=== PATIENT | male | born 1950 | race African-American/Black ===

== ENCOUNTER 2017-05-13 16:22 | Inpatient (IN) | payer OTHER ==
[2017-05-13 16:55] LABS: BASO % 0.4 % (0-2.0); EOS % 0.6 % (0-4.5); HEMATOCRIT 41.3 % (35.4-49); HEMOGLOBIN 13.6 GM/dL (11.7-16.9); LYMPH % 33.9 % (8-40); MCH 29.4 pg (25.7-33.7); MCHC 32.9 g/dl (32.0-35.9); MEAN CELL VOLUME 89.3 fl (80-96); MEAN PLT VOLUME 7.6 fl (7.5-11.1); MONO % 8.9 % (3.8-10.2); NEUT % 56.2 % (42.8-82.8); PLATELET COUNT 209 K/MM3 (134-434); RBC 4.62 M/mm3 (4.00-5.60); RDW 13.9 % (11.9-15.9); WHITE BLOOD COUNT 6.7 K/mm3 (4.0-10.0)
[2017-05-13 16:57] LABS: URINE APPEARANCE CLOUDY; URINE BILIRUBIN NEGATIVE (NEGATIVE); URINE BLOOD 3+ (NEGATIVE); URINE COLOR DKYELLOW; URINE GLUCOSE (UA) NEGATIVE (NEGATIVE); URINE KETONE NEGATIVE (NEGATIVE); URINE LEUK ESTERASE NEGATIVE (NEGATIVE); URINE NITRITE NEGATIVE (NEGATIVE)
[2017-05-13 16:58] LABS: URINE PROTEIN 1+ (NEGATIVE)
[2017-05-13 17:08] LABS: URINE HYALINE CAST 4 /lpf; URINE MUCUS RARE
--- NOTE | 2017-05-13 17:14 | PDOC ---
History of Present Illness - General Chief Complaint: Pain, Acute Stated Complaint: FLANK/ABD PAIN Time Seen by Provider: 05/13/17 16:49 History Source: Patient Exam Limitations: No Limitations - History of Present Illness Travel History: No Initial Comments: 05/13/17 17:11 67-year-old male with a history of hyperlipidemia presents to the emergency department complaining of 6/10 sharp nonradiating intermittent left-sided flank pain since yesterday. Patient states he thought it was the Menendez's that he had last evening. Patient states the pain subsided last evening but recurred again 3 hours prior to his arrival to the emergency department this evening. There are no alleviating or exacerbating factors. Patient denies fever, chills, nausea/vomiting, injuries, chest pain, shortness of breath, back pains, abdominal discomfort, urinary symptoms: Frequency/urgency/hesitancy, hematuria. No history of renal colic. Timing/Duration: reports: intermittent Abdominal Pain Onset Location: reports: flank (left) Past History - Past Medical History Allergies/Adverse Reactions: Allergies Allergy/AdvReac Type Severity Reaction Status Date / Time No Known Allergies Allergy Verified 05/13/17 16:30 Home Medications: Ambulatory Orders Atorvastatin Ca [Lipitor] 20 mg PO HS 05/13/17 COPD: No Hypercholesterolemia: Yes - Surgical History Abdominal Surgery: Yes (hernia) - Suicide/Smoking/Psychosocial Hx Smoking History: Never smoked Information on smoking cessation initiated: No Hx Alcohol Use: No Drug/Substance Use Hx: No Substance Use Type: None Review of Systems - Review of Systems Able to Perform ROS?: Yes Comments:: 05/13/17 17:12 CONSTITUTIONAL: Absent: fever, chills, diaphoresis, generalized weakness, malaise, loss of appetite HEENT: Absent: rhinorrhea, nasal congestion, throat pain, throat swelling, difficulty swallowing, mouth swelling, ear pain, eye pain, visual Changes CARDIOVASCULAR: Absent: chest pain, loss of consciousness, palpitations, irregular heart rate, peripheral edema RESPIRATORY: Absent: cough, shortness of breath, dyspnea with exertion, orthopnea, wheezing, stridor, hemoptysis GASTROINTESTINAL: Absent: abdominal pain, abdominal distension, nausea, vomiting, diarrhea, constipation, melena, hematochezia GENITOURINARY: +left flank pain Absent: dysuria, frequency, urgency, hesitancy, hematuria, genital pain MUSCULOSKELETAL: Absent: myalgia, arthralgia, joint swelling SKIN: Absent: rash, itching, pallor HEMATOLOGIC/IMMUNOLOGIC: Absent: easy bleeding, easy bruising, lymphadenopathy, frequent infections ENDOCRINE: Absent: unexplained weight gain, unexplained weight loss, heat intolerance, cold intolerance NEUROLOGIC: Absent: headache, focal weakness or paresthesias, dizziness, unsteady gait, seizure, mental status changes, bladder or bowel incontinence Is the patient limited Bhutanese proficient: No *Physical Exam - Vital Signs Last Vital Signs Temp Pulse Resp BP Pulse Ox 97.5 F L 70 19 171/94 97 05/13/17 16:28 05/13/17 16:28 05/13/17 16:28 05/13/17 16:28 05/13/17 16:28 - Physical Exam Comments: 05/13/17 17:12 GENERAL: Well developed, well nourished. Awake and alert. No acute distress. HEENT: Normocephalic, atraumatic. PERRLA, EOMI. No conjunctival pallor. Sclera are non- icteric. Moist mucous membranes. Oropharynx is clear. NECK: Supple. Full ROM. No JVD. Carotid pulses 2+ and symmetric, without bruits. No thyromegaly. No lymphadenopathy. CARDIOVASCULAR: Regular rate and rhythm. No murmurs, rubs, or gallops. Distal pulses are 2+ and symmetric. PULMONARY: No evidence of respiratory distress. Lungs clear to auscultation bilaterally. No wheezing, rales or rhonchi. ABDOMINAL: Soft. Non-tender. Non-distended. No rebound or guarding. No organomegaly. Normoactive bowel sounds. MUSCULOSKELETAL +left flank pain on percussion Normal range of motion at all joints. No bony deformities or tenderness. EXTREMITIES: No cyanosis. No clubbing. No edema. No calf tenderness. SKIN: Warm and dry. Normal capillary refill. No rashes. No jaundice. NEUROLOGICAL: Alert, awake, appropriate. Cranial nerves 2-12 intact. No deficits to light touch and temperature in face, upper extremities and lower extremities. No motor deficits in the in face, upper extremities and lower extremities. Normoreflexic in the upper and lower extremities. Normal speech. Toes are down- going bilaterally. Gait is normal without ataxia. PSYCHIATRIC: Cooperative. Good eye contact. Appropriate mood and affect. ED Treatment Course - LABORATORY CBC & Chemistry Diagram: 05/13/17 16:29 05/13/17 16:29 - ADDITIONAL ORDERS Additional order review: Laboratory Results 05/13/17 16:29 Urine Color Dkyellow Urine Appearance Cloudy Urine pH 5.0 Ur Specific [place] 1.020 Urine Protein 1+ H Urine Glucose (UA) Negative Urine Ketones Negative Urine Blood 3+ H Urine Nitrite Negative Urine Bilirubin Negative Urine Urobilinogen 2.0 05/13/17 16:29 RBC 4.62 MCV 89.3 MCHC 32.9 RDW 13.9 MPV 7.6 Neutrophils % 56.2 Lymphocytes % 33.9 Monocytes % 8.9 Eosinophils % 0.6 Basophils % 0.4 - RADIOLOGY Radiograph Interpretation: 05/13/17 17:14 CT renal colic Progress Note - Progress Note Progress Note: 2044hrs: Spoke to Imaging pediatric oncologist Dr. Bethea/ 1cm obstructing calculus prox ureter with mild hydronephrosis 2hrs: 2nd call to Dr. De Oliveira/urology 2130hrs: Called hospitalist 6 hrs: Called hospitalist 2223hrs; Called hospitalist 2315hrs: Spoke to hospitalist /Dr. Howell *DC/Admit/Observation/Transfer Diagnosis at time of Disposition: Renal colic on left side Hydronephrosis Qualifiers: Hydronephrosis type: with renal and ureteral calculous obstruction Qualified Code(s): N13.2 - Hydronephrosis with renal and ureteral calculous obstruction - Discharge Dispostion Admit: Yes - Referrals Referrals: Lance Boss [Primary Care Provider] - - Patient Instructions - Post Discharge Activity
[2017-05-13 17:26] LABS: ALBUMIN 4.3 g/dl (3.4-5.0); ANION GAP 9 (8-16); BILIRUBIN,TOTAL 0.7 mg/dL (0.2-1.0); BLOOD UREA NITROGEN 11 mg/dL (7-18); CALCIUM 9.2 mg/dL (8.5-10.1); CHLORIDE 106 mmol/L (98-107); CO2 25 mmol/L (21-32); CREATININE 1.4 mg/dL (0.7-1.3); GLUCOSE,RANDOM 116 mg/dL (74-106); POTASSIUM 3.9 mmol/L (3.5-5.1); SGOT/AST 24 U/L (15-37); SGPT/ALT 50 U/L (12-78); SODIUM 140 mmol/L (136-145)
[2017-05-13 17:27] LABS: ALK PHOS 76 U/L (45-117)
[2017-05-13] MEDS ORDERED: KETOROLAC TROMETHAMINE 60 MG/2 ML VIAL IM ONE (17:37)
[2017-05-13] MEDS ORDERED: KETOROLAC TROMETHAMINE 60 MG/2 ML VIAL ONE (17:54)
[2017-05-13] MEDS ORDERED: SODIUM CHLORIDE 1,000 ML IV STA (20:48)
[2017-05-13] MEDS ORDERED: TAMSULOSIN HCL 0.4 MG CAP.ER.24H (FP) PO ONE (21:16)
[2017-05-13] MEDS ORDERED: TAMSULOSIN HCL 0.4 MG CAP.ER.24H (FP) ONE (21:21)
[2017-05-14] MEDS ORDERED: KETOROLAC TROMETHAMINE 30 MG/1 ML VIAL IVPUSH PRN (00:35)
--- NOTE | 2017-05-14 00:58 | HP ---
CHIEF COMPLAINT: back pain PCP: Gera HISTORY OF PRESENT ILLNESS: The pt is a 67 year old male with a PMH of hyperlipidemia presents to the emergency department complaining of severe pain located on the left side of his back. It started yesterday, was 6 to 10/10, started suddenly when pt was driving. He states he thought it was the Menendez's that he had last evening but the pain subsided last evening. It recurred again around 3 PM today, prior to his arrival to the emergency department. There are no alleviating or exacerbating factors. It is constant, left flank, no radiation. Patient denies fever, chills, nausea/vomiting, renal colic in the past, injuries, chest pain, shortness of breath, trauma, requency, urgency, hematuria. 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 Family History: Mother; healthy, alive father: Colon Ca Allergies No Known Allergies Allergy (Verified 05/13/17 16:30) HOME MEDICATIONS: confirmed with the pt Home Medications Medication Instructions Recorded Atorvastatin Ca [Lipitor] 20 mg PO HS 05/13/17 REVIEW OF SYSTEMS CONSTITUTIONAL: Absent: fever, chills, diaphoresis, generalized weakness, malaise, loss of appetite, weight change HEENT: Absent: rhinorrhea, nasal congestion, throat pain, throat swelling, difficulty swallowing, mouth swelling, ear pain, eye pain, visual changes CARDIOVASCULAR: Absent: chest pain, syncope, palpitations, irregular heart rate, lightheadedness , peripheral edema RESPIRATORY: Absent: cough, shortness of breath, orthopnea, wheezing, stridor, hemoptysis GASTROINTESTINAL: Absent: abdominal pain, abdominal distension, nausea, vomiting, diarrhea, constipation, melena, hematochezia GENITOURINARY: Absent: dysuria, frequency, urgency, hesitancy, hematuria, flank pain, genital pain MUSCULOSKELETAL: back pain Absent: myalgia, arthralgia, joint swelling, neck pain ENDOCRINE: Absent: unexplained weight gain, unexplained weight los NEUROLOGIC: Absent: headache, focal weakness or paresthesias, dizziness, unsteady gait PSYCHIATRIC: Absent: anxiety, depression PHYSICAL EXAMINATION Vital Signs - 24 hr 05/13/17 05/13/17 05/14/17 16:28 21:27 00:23 Temperature 97.5 F L 98.0 F 98.2 F Pulse Rate 70 Pulse Rate [ 68 74 Apical] Respiratory 19 20 18 Rate Blood Pressure 171/94 Blood Pressure 152/86 136/89 [Right Arm] O2 Sat by Pulse 97 98 98 Oximetry (%) GENERAL: Awake, alert, and fully oriented, in moderate distress. HEAD: Normal with no signs of trauma. EYES: Pupils equal, round and reactive to light, extraocular movements intact, sclera anicteric, conjunctiva clear. No lid lag. EARS, NOSE, THROAT: Ears normal, nares patent, oropharynx clear without exudates. Moist mucous membranes. NECK: Normal range of motion, supple without lymphadenopathy, JVD, or masses. LUNGS: Breath sounds equal, clear to auscultation bilaterally. No wheezes, and no crackles. No accessory muscle use. HEART: Regular rate and rhythm, normal S1 and S2 without murmur, rub or gallop. ABDOMEN: Obese, soft, nontender, not distended, normoactive bowel sounds, no guarding, no rebound, no masses. MUSCULOSKELETAL: Normal range of motion at all joints. CVA tenderness on left side present. UPPER EXTREMITIES: 2+ pulses, warm, No cyanosis. No clubbing. No peripheral edema. LOWER EXTREMITIES: 2+ pulses, warm, No calf tenderness. No peripheral edema. NEUROLOGICAL: Normal speech, no facial asymmetry, motor 5/5. Normal gait. PSYCHIATRIC: Cooperative. Good eye contact. Appropriate mood and affect. SKIN: Warm, dry, normal turgor, no rashes or lesions noted. Laboratory Results - last 24 hr 05/13/17 05/13/17 05/13/17 16:29 16:29 16:29 WBC 6.7 RBC 4.62 Hgb 13.6 Hct 41.3 MCV 89.3 MCH 29.4 MCHC 32.9 RDW 13.9 Plt Count 209 MPV 7.6 Neutrophils % 56.2 Lymphocytes % 33.9 Monocytes % 8.9 Eosinophils % 0.6 Basophils % 0.4 Sodium 140 Potassium 3.9 Chloride 106 Carbon Dioxide 25 Anion Gap 9 BUN 11 Creatinine 1.4 H Creat Clearance w eGFR 50.25 Random Glucose 116 H Calcium 9.2 Total Bilirubin 0.7 AST 24 ALT 50 Alkaline Phosphatase 76 Total Protein 8.0 Albumin 4.3 Urine Color Dkyellow Urine Appearance Cloudy Urine pH 5.0 Ur Specific [place] 1.020 Urine Protein 1+ H Urine Glucose (UA) Negative Urine Ketones Negative Urine Blood 3+ H Urine Nitrite Negative Urine Bilirubin Negative Urine Urobilinogen 2.0 Ur Leukocyte Esterase Negative Urine WBC (Auto) 1 Urine RBC (Auto) 937 Hyaline Casts 4 Urine Mucus Rare ASSESSMENT/PLAN: This is a patient with a PMH of hyperlipidemia who presented to the hospital complaining of severe flank pain. He was admitted for renal colic. Renal colic due to nephrolithiasis preliminary CT report revealed 10 mm stone, will f/u official report Urology was consulted and will evaluate the pt in AM continue NS hydration at 150 cc/hr continue Ketorolac for pain management Hyperlipidemia: continue Atorvastatin 20 mg qd elevated creatinine; not known h/o of CKD, previous Cr will continue hydration DVT: SCDs and Hepatin 5000 u BID F/E/N: NS/no changes/NPO Disposition: Admit to inp med surg. Problem List - Problem (1) Renal colic on left side Code(s): N23 - UNSPECIFIED RENAL COLIC Visit type - Emergency Visit Emergency Visit: Yes ED Registration Date: 05/13/17 Care time: The patient presented to the Emergency Department on the above date and was hospitalized for further evaluation of their emergent condition. - New Patient This patient is new to me today: Yes Date on this admission: 05/14/17 - Critical Care Critical Care patient: No
[2017-05-14] MEDS: SODIUM CHLORIDE 1,000 ML IV SCH ×3 (01:11→12:28)
--- NOTE | 2017-05-14 01:15 | PN ---
Teaching Attending Note Name of Resident: Tina Guerrero ATTENDING PHYSICIAN STATEMENT I saw and evaluated the patient. I reviewed the resident's note and discussed the case with the resident. I agree with the resident's findings and plan as documented. SUBJECTIVE: OBJECTIVE: ASSESSMENT AND PLAN: patient is being admitted for nephrolithaisis IVF hydration pain management with keterolac consult urology tamsulosin 0.4mg daily
[2017-05-14 01:28] VITALS: BMI 38.3
[2017-05-14] MEDS ORDERED: KETOROLAC TROMETHAMINE 30 MG/1 ML VIAL IVPUSH ONE (05:08)
[2017-05-14] MEDS ORDERED: TAMSULOSIN HCL 0.4 MG CAP.ER.24H (FP) PO SCH (08:30)
[2017-05-14] MEDS ORDERED: HEPARIN NA (PORCINE) 5,000 UNITS/ML 1ML VIAL SQ SCH (10:00)
[2017-05-14 10:40] LABS: HEMATOCRIT 37.8 % (35.4-49); HEMOGLOBIN 12.3 GM/dL (11.7-16.9); MCH 29.3 pg (25.7-33.7); MCHC 32.6 g/dl (32.0-35.9); MEAN CELL VOLUME 89.7 fl (80-96); MEAN PLT VOLUME 7.6 fl (7.5-11.1); PLATELET COUNT 197 K/MM3 (134-434); RBC 4.22 M/mm3 (4.00-5.60); RDW 13.7 % (11.9-15.9); WHITE BLOOD COUNT 7.9 K/mm3 (4.0-10.0)
[2017-05-14 11:02] LABS: ALBUMIN 3.6 g/dl (3.4-5.0); ALK PHOS 66 U/L (45-117); ANION GAP 8 (8-16); BILIRUBIN,TOTAL 0.9 mg/dL (0.2-1.0); BLOOD UREA NITROGEN 14 mg/dL (7-18); CALCIUM 8.3 mg/dL (8.5-10.1); CHLORIDE 110 mmol/L (98-107); CO2 24 mmol/L (21-32); CREATININE 1.6 mg/dL (0.7-1.3); GLUCOSE,RANDOM 116 mg/dL (74-106); POTASSIUM 4.2 mmol/L (3.5-5.1); SGOT/AST 16 U/L (15-37); SGPT/ALT 37 U/L (12-78); SODIUM 142 mmol/L (136-145); TOT PROT 6.8 g/dl (6.4-8.2)
--- NOTE | 2017-05-14 11:21 | PN ---
Teaching Attending Note Name of Resident: . ATTENDING PHYSICIAN STATEMENT SUBJECTIVE: Patient seen and examined. reports left flank pain resolved an hour ago, no urinary symptoms. Denies any fevers, chills or other symptoms. Overall feels well currently. OBJECTIVE: Vital Signs Period Temp Pulse Resp BP Sys/Flaherty Pulse Ox Last 24 Hr 97.4 F-98.3 F 68-80 18-20 129-171/86-96 97-98 Intake & Output 05/11/17 05/12/17 05/13/17 05/14/17 23:59 23:59 23:59 23:59 Intake Total 1000 Output Total 400 Balance 600 Weight 220 lb 252 lb 6 oz general: ambulating in room in no acute distress ABdomen: soft, obese, NT, no Left CVA tenderness currently, no voluntary or involuntary guarding or rigidity Extremities: no edema Chest: CTAB, no rales or wheezing Home Medication List Medication Instructions Recorded Confirmed Type Atorvastatin Ca [Lipitor] 20 mg PO HS 05/13/17 05/13/17 History Active Medications Generic Name Dose Route Start Last Admin Trade Name Freq PRN Reason Stop Dose Admin Atorvastatin Calcium 20 mg 05/14/17 22:00 Lipitor - PO HS GUSTAVO Heparin Sodium (Porcine) 5,000 unit 05/14/17 10:00 05/14/17 09:25 Heparin - SQ 5,000 unit BID GUSTAVO Administration Sodium Chloride 1,000 mls @ 150 mls/hr 05/14/17 00:30 05/14/17 06:52 Normal Saline - IV 150 mls/hr ASDIR GUSTAVO Administration Ketorolac Tromethamine 20 mg 05/14/17 00:35 05/14/17 01:06 Toradol Injection - IVPUSH 05/19/17 00:34 20 mg Q6H PRN Administration PAIN Tamsulosin HCl 0.8 mg 05/14/17 08:30 05/14/17 09:01 Flomax - PO 0.8 mg DAILY@0830 GUSTAVO Administration Laboratory Results - last 24 hr 05/13/17 05/13/17 05/13/17 16:29 16:29 16:29 WBC 6.7 RBC 4.62 Hgb 13.6 Hct 41.3 MCV 89.3 MCH 29.4 MCHC 32.9 RDW 13.9 Plt Count 209 MPV 7.6 Neutrophils % 56.2 Lymphocytes % 33.9 Monocytes % 8.9 Eosinophils % 0.6 Basophils % 0.4 Sodium 140 Potassium 3.9 Chloride 106 Carbon Dioxide 25 Anion Gap 9 BUN 11 Creatinine 1.4 H Creat Clearance w eGFR 50.25 Random Glucose 116 H Calcium 9.2 Total Bilirubin 0.7 AST 24 ALT 50 Alkaline Phosphatase 76 Total Protein 8.0 Albumin 4.3 Urine Color Dkyellow Urine Appearance Cloudy Urine pH 5.0 Ur Specific [place] 1.020 Urine Protein 1+ H Urine Glucose (UA) Negative Urine Ketones Negative Urine Blood 3+ H Urine Nitrite Negative Urine Bilirubin Negative Urine Urobilinogen 2.0 Ur Leukocyte Esterase Negative Urine WBC (Auto) 1 Urine RBC (Auto) 937 Hyaline Casts 4 Urine Mucus Rare 05/14/17 05/14/17 09:35 09:35 WBC 7.9 RBC 4.22 Hgb 12.3 Hct 37.8 MCV 89.7 MCH 29.3 MCHC 32.6 RDW 13.7 Plt Count 197 MPV 7.6 Neutrophils % Lymphocytes % Monocytes % Eosinophils % Basophils % Sodium 142 Potassium 4.2 Chloride 110 H Carbon Dioxide 24 Anion Gap 8 BUN 14 D Creatinine 1.6 H Creat Clearance w eGFR 43.07 Random Glucose 116 H Calcium 8.3 L Total Bilirubin 0.9 D AST 16 D ALT 37 D Alkaline Phosphatase 66 Total Protein 6.8 Albumin 3.6 Urine Color Urine Appearance Urine pH Ur Specific [place] Urine Protein Urine Glucose (UA) Urine Ketones Urine Blood Urine Nitrite Urine Bilirubin Urine Urobilinogen Ur Leukocyte Esterase Urine WBC (Auto) Urine RBC (Auto) Hyaline Casts Urine Mucus CT A/P - official read pending, prelim 1 cm stone with mild hydronephrosis ASSESSMENT AND PLAN: 67 yom with dysloipidemia, obesity, admitted with Left obstructive uropathy with nephrolithiasis and hydronephrosis -Left nephrolithiasis with hydronephrosis -HLD -Obesity Plan: Urology called, Dr. Milligan covering, awaiting call back. NPO for now. Symptoms resolved currently. Toradol prn for pain. Aggressive hydration, strain all urine(though unlikely given size of the stone) Renal function stable, no evidence of infection. Follow up official CT read Continue statin. DVTPPX dispo pending urology input and likely intervention. Plan discussed with patient in detail, all questions answered.
[2017-05-14] MEDS ORDERED: PROMETHAZINE HCL 25 MG/1 ML VIAL IVPB PRN ×2 (13:36→16:32)
[2017-05-14] MEDS ORDERED: ONDANSETRON 4 MG/2 ML VIAL IVPUSH PRN ×2 (13:36→16:32)
[2017-05-14] MEDS ORDERED: LACTATED RINGERS SOLUTION 1,000 ML IV SCH ×2 (13:45→16:32)
[2017-05-14] MEDS ORDERED: PROPOFOL 20 ML ONE ×2 (14:38→14:39)
[2017-05-14] MEDS ORDERED: MIDAZOLAM HCL 2 MG/2 ML SINGLE DOSE VIAL ONE (14:39)
[2017-05-14] MEDS ORDERED: LIDOCAINE HCL/PF 2% SDV 5ML VIAL ONE (14:40)
[2017-05-14] MEDS ORDERED: LEVOFLOXACIN 500 MG IVPB 500 MG/100 ML BAG IVPB ONE (14:58)
[2017-05-14] MEDS ORDERED: LEVOFLOXACIN 500 MG PREMIX BAG IVPB ONE (14:59)
[2017-05-14] MEDS ORDERED: DEXAMETHASONE SOD PHOSPHATE 4 MG/1 ML VIAL ONE (15:05)
[2017-05-14] MEDS ORDERED: KETOROLAC TROMETHAMINE 30 MG/1 ML VIAL ONE (15:09)
[2017-05-14] MEDS ORDERED: SODIUM CHLORIDE 1,000 ML IV SCH (16:32)
--- NOTE | 2017-05-14 16:56 | EKG ---
Test Reason : Blood Pressure : / mmHG Vent. Rate : 071 BPM Atrial Rate : 071 BPM P-R Int : 196 ms QRS Dur : 084 ms QT Int : 400 ms P-R-T Axes : 051 -05 009 degrees QTc Int : 434 ms NORMAL SINUS RHYTHM NORMAL ECG NO PREVIOUS ECGS AVAILABLE Confirmed by TESSIE UMANZOR MD ([id number]) on 05/14/2017 4:56:09 PM Referred By: Rosie MORENO Confirmed By:TESSIE UMANZOR MD
[2017-05-14] MEDS: DEXTROSE 5%-0.45% SALINE 1,000 ML IV SCH (17:00)
--- NOTE | 2017-05-14 20:39 | CON.GU ---
Consult Consult Specialty:: Referred by:: MEDICINE Reason for Consultation:: Left ureteral. calculus - History of Present Illness Chief Complaint: left renal colic History of Present Illness: 67-year-old male with a left ureteral calculus. He has had several days of left- sided flank pain. No fevers. No previous history of stones. CAT scan done in emergency room revealed a 1 cm stone in the left ureter. He continues to have intermittent pain. - History Source History Provided By: Patient Limitations to Obtaining History: No Limitations - Past Medical History Renal/: Yes: BPH - Alcohol/Substance Use Hx Alcohol Use: No - Smoking History Smoking history: Never smoked Have you smoked in the past 12 months: No Home Medications - Allergies Allergies/Adverse Reactions: Allergies Allergy/AdvReac Type Severity Reaction Status Date / Time No Known Allergies Allergy Verified 05/13/17 16:30 - Home Medications Home Medications: Ambulatory Orders Atorvastatin Ca [Lipitor] 20 mg PO HS 05/13/17 Review of Systems - Review of Systems Genitourinary: reports: Flank Pain Physical Exam- Vital Signs: Vital Signs Temperature 98.4 F 05/14/17 17:33 Pulse Rate 68 05/14/17 17:33 Respiratory Rate 17 05/14/17 17:33 Blood Pressure 146/89 05/14/17 17:33 O2 Sat by Pulse Oximetry (%) 100 05/14/17 17:30 Kidneys: Yes: Flank Pain Left Labs: CBC, BMP 05/14/17 09:35 05/14/17 09:35 Problem List - Problems (1) Hydronephrosis Assessment/Plan: Patient was offered outpatient lithotripsy or immediate ureteral stent placement. He chooses to have the stent placed here. Will schedule for the OR. Code(s): N13.30 - UNSPECIFIED HYDRONEPHROSIS Qualifiers: Hydronephrosis type: with renal and ureteral calculous obstruction Qualified Code(s): N13.2 - Hydronephrosis with renal and ureteral calculous obstruction (2) Renal colic on left side Code(s): N23 - UNSPECIFIED RENAL COLIC
--- NOTE | 2017-05-14 20:44 | CON.GU ---
Consult Consult Specialty:: Referred by:: MEDICINE Reason for Consultation:: 67-year-old male with an obstructing left ureteral calculus - History of Present Illness Chief Complaint: left renalcolic History of Present Illness: 67-year-old male with several days of left-sided real colic. No previous history of kidney stones. No fevers. CAT scan done in the emergency room confirmed the presence of a 1 cm stone in the mid left ureter with proximal hydronephrosis. He continues to have intermittent pain. No fevers noted. - History Source History Provided By: Patient Limitations to Obtaining History: No Limitations - Past Medical History Renal/: Yes: BPH - Alcohol/Substance Use Hx Alcohol Use: No - Smoking History Smoking history: Never smoked Have you smoked in the past 12 months: No Home Medications - Allergies Allergies/Adverse Reactions: Allergies Allergy/AdvReac Type Severity Reaction Status Date / Time No Known Allergies Allergy Verified 05/13/17 16:30 - Home Medications Home Medications: Ambulatory Orders Atorvastatin Ca [Lipitor] 20 mg PO HS 05/13/17 Physical Exam- Vital Signs: Vital Signs Temperature 98.4 F 05/14/17 17:33 Pulse Rate 68 05/14/17 17:33 Respiratory Rate 17 05/14/17 17:33 Blood Pressure 146/89 05/14/17 17:33 O2 Sat by Pulse Oximetry (%) 100 05/14/17 17:30 Labs: CBC, BMP 05/14/17 09:35 05/14/17 09:35
[2017-05-14] MEDS ORDERED: ATORVASTATIN CA 20 MG TABLET (FP) PO SCH ×2 (22:00)
[2017-05-14] MEDS: HEPARIN NA (PORCINE) 5,000 UNITS/ML 1ML VIAL SQ SCH (22:06)
[2017-05-15] MEDS: DEXTROSE 5%-0.45% SALINE 1,000 ML IV SCH (06:00)
[2017-05-15 07:14] LABS: BASO % 0.3 % (0-2.0); HEMOGLOBIN 11.3 GM/dL (11.7-16.9); LYMPH % 14.6 % (8-40); MCH 29.1 pg (25.7-33.7); MCHC 32.3 g/dl (32.0-35.9); MEAN PLT VOLUME 8.1 fl (7.5-11.1); MONO % 8.3 % (3.8-10.2); NEUT % 76.8 % (42.8-82.8); PLATELET COUNT 188 K/MM3 (134-434); RBC 3.89 M/mm3 (4.00-5.60); RDW 13.6 % (11.9-15.9); WHITE BLOOD COUNT 8.5 K/mm3 (4.0-10.0)
[2017-05-15 07:33] LABS: ANION GAP 11 (8-16); BLOOD UREA NITROGEN 13 mg/dL (7-18); CALCIUM 8.5 mg/dL (8.5-10.1); CHLORIDE 108 mmol/L (98-107); CO2 23 mmol/L (21-32); CREATININE 1.2 mg/dL (0.7-1.3); GLUCOSE,RANDOM 130 mg/dL (74-106); POTASSIUM 4.4 mmol/L (3.5-5.1); SODIUM 142 mmol/L (136-145)
[2017-05-15] MEDS ORDERED: TAMSULOSIN HCL 0.4 MG CAP.ER.24H (FP) PO SCH (08:30)
[2017-05-15 08:48] VITALS: BP 142/85; PULSE 66; TEMP 98
[2017-05-15] MEDS: HEPARIN NA (PORCINE) 5,000 UNITS/ML 1ML VIAL SQ SCH (09:35)
--- NOTE | 2017-05-15 09:44 | DS ---
Physical Exam: SUBJECTIVE: Patient seen and examined. pain has resolved. denies CP, SOB< fever , chills, N/V/C/D OBJECTIVE: Vital Signs Period Temp Pulse Resp BP Sys/Flaherty Pulse Ox Last 24 Hr 97.4 F-98.7 F 65-86 10-18 122-146/76-89 98-100 PHYSICAL EXAM GENERAL: The patient is awake, alert, and fully oriented, in no acute distress. HEAD: Normal with no signs of trauma. EYES: PERRL, extraocular movements intact, sclera anicteric, conjunctiva clear. ENT: Ears normal, nares patent, oropharynx clear without exudates, moist mucous membranes. NECK: Trachea midline, full range of motion, supple. LUNGS: Breath sounds equal, clear to auscultation bilaterally, no wheezes, no crackles, no accessory muscle use. HEART: Regular rate and rhythm, S1, S2 without murmur, rub or gallop. ABDOMEN: Soft, nontender, nondistended, normoactive bowel sounds, no guarding, no rebound, no hepatosplenomegaly, no masses. no CVA tenderness EXTREMITIES: 2+ pulses, warm, well-perfused, no edema. NEUROLOGICAL: Cranial nerves II through XII grossly intact. Normal speech, gait not observed. PSYCH: Normal mood, normal affect. SKIN: Warm, dry, normal turgor, no rashes or lesions noted. LABS Laboratory Results - last 24 hr 05/14/17 05/14/17 05/15/17 09:35 09:35 06:25 WBC 7.9 8.5 RBC 4.22 3.89 L Hgb 12.3 11.3 L Hct 37.8 35.0 L MCV 89.7 90.0 MCH 29.3 29.1 MCHC 32.6 32.3 RDW 13.7 13.6 Plt Count 197 188 MPV 7.6 8.1 Neutrophils % 76.8 D Lymphocytes % 14.6 D Monocytes % 8.3 Eosinophils % 0.0 D Basophils % 0.3 Sodium 142 Potassium 4.2 Chloride 110 H Carbon Dioxide 24 Anion Gap 8 BUN 14 D Creatinine 1.6 H Creat Clearance w eGFR 43.07 Random Glucose 116 H Calcium 8.3 L Total Bilirubin 0.9 D AST 16 D ALT 37 D Alkaline Phosphatase 66 Total Protein 6.8 Albumin 3.6 05/15/17 06:25 WBC RBC Hgb Hct MCV MCH MCHC RDW Plt Count MPV Neutrophils % Lymphocytes % Monocytes % Eosinophils % Basophils % Sodium 142 Potassium 4.4 Chloride 108 H Carbon Dioxide 23 Anion Gap 11 BUN 13 Creatinine 1.2 D Creat Clearance w eGFR Random Glucose 130 H Calcium 8.5 Total Bilirubin AST ALT Alkaline Phosphatase Total Protein Albumin HOSPITAL COURSE: Date of Admission:05/13/17 Date of Discharge: 05/15/17 Admitting diagnosis: L obstructing nephrolithasis PRe hospital course The pt is a 67 year old male with a PMH of hyperlipidemia presents to the emergency department complaining of severe pain located on the left side of his back. It started yesterday, was 6 to 1010, started suddenly when pt was driving. He states he thought it was the Menendez's that he had last evening but the pain subsided last evening. It recurred again around 3 PM today, prior to his arrival to the emergency department. There are no alleviating or exacerbating factors. It is constant, left flank, no radiation. Patient denies fever, chills, nausea/vomiting, renal colic in the past, injuries, chest pain, shortness of breath, trauma, requency, urgency, hematuria. Subsequent hospital course Admitted to medicine. started on IVF, flomax and pain control. CT showing obstructing 1cm L stone with mild hydro. evaluated by urology. opted for ureteral stent placement. LAKIA resolved. hematuria resolved. pain resolved. d/c home Minutes to complete discharge: 40 Discharge Summary Reason For Visit: HYDRONEPHROSIS/RENAL COLIC ON LEFT SIDE Current Active Problems Hematuria (Acute) Hydronephrosis (Acute) Renal calculus or stone (Acute) Renal colic on left side (Acute) Condition: Improved - Instructions Diet, Activity, Other Instructions: You were admitted to the hospital due to a kidney stone You were placed on a medication to help pass the stone and for your prostate. A stent was placed into your left ureter. You can take motrin as needed for pain. Continued to drink plenty of water. avoid soda. Follow up with urologist in 1 -2 weeks Follow up with your primary care doctor this week, You should have your blood counts checked as they were low while you were hospitalized. Return the ER if your symptoms worsen, urinate tim blood or develop fever ( temp >101) Referrals: Lance Boss [Primary Care Provider] - Vickey Agrawal MD [Staff Physician] - Disposition: HOME - Home Medications Comprehensive Discharge Medication List: Ambulatory Orders Atorvastatin Ca [Lipitor] 20 mg PO HS 05/13/17 Tamsulosin HCl [Flomax -] 0.8 mg PO DAILY@08 #60 cap.er.24h 05/15/17 This patient is new to me today: Yes Date on this admission: 05/15/17 Emergency Visit: Yes ED Registration Date: 05/13/17 Care time: The patient presented to the Emergency Department on the above date and was hospitalized for further evaluation of their emergent condition. Critical Care patient: No - Discharge Referral Referred to [facility] Med [facility].C.: No
--- NOTE | 2017-05-26 09:31 | OP ---
DATE OF OPERATION: 05/14/2017 PREOPERATIVE DIAGNOSIS: Left ureteral calculus with hydronephrosis. POSTOPERATIVE DIAGNOSIS: Left ureteral calculus with hydronephrosis. PROCEDURE: Cystoscopy, left retrograde pyelogram, left ureteroscopy, left ureteral stent placement. ANESTHESIA: General. ANESTHESIOLOGIST: Ward Cardenas MD SURGEON: Vickey Agrawal MD FINDINGS: An obstructed left ureter. DRAINS: A 6 x 26 double-J ureteral stent. ESTIMATED BLOOD LOSS: Minimal. PREOPERATIVE INDICATIONS: The patient is a 67-year-old male who comes in with left-sided flank pain. CT scan reveals a 1-cm stone in the left ureter. He comes to the OR for stent placement. OPERATION: Patient brought to the OR, placed on the table in the supine position, given general anesthesia and IV antibiotics and placed in the modified lithotomy position. The groin was prepped and draped sterilely. Timeout was performed. Cystoscopy was performed. The urethra appeared to be unremarkable. Prostate was markedly enlarged and obstructive. The bladder itself had trabeculation throughout consistent with longstanding bladder outlet obstruction. No tumors or stones were seen. The left ureteral orifice was visualized. Attempts at passing a wire into the left ureter were unsuccessful. There appeared to be some obstruction in the intramural ureter and a wire could not be passed. A rigid ureteroscope was then placed into the ureter and the true lumen was seen. The wire was passed under guidance of the ureteroscope. The scope was then removed and a 6 x 26 double-J ureteral stent was placed over the wire. One loop in the kidney, 1 loop in the bladder. Retrograde pyelogram did confirm hydronephrosis. Bladder was emptied. The patient was woken up. Edouard [id number]
== END 2017-05-15 10:42 | disposition home or self-care (01) | DRG 660 ==
LOC: JER 16:22 → JERBED 23:13 → UNDOADMIN 23:17 → JERBED 23:17 → J5S 05-14 00:51
PROVIDERS: ADMIT Internal Medicine; ATTEND Internal Medicine
PROC: 0TH98YZ Insertion of Other Device into Ureter, Via Natural or Artificial Opening Endoscopic (ICD-10-PCS; 2017-05-14)
PROC: BT1FZZZ Fluoroscopy of Left Kidney, Ureter and Bladder (ICD-10-PCS; 2017-05-14)
PROC: 0T778DZ Dilation of Left Ureter with Intraluminal Device, Via Natural or Artificial Opening Endoscopic (ICD-10-PCS; principal; 2017-05-14 14:30)
DX: N13.2 Hydronephrosis with renal and ureteral calculous obstruction (principal); R31.9 Hematuria, unspecified; E78.5 Hyperlipidemia, unspecified; E66.9 Obesity, unspecified; Z68.38 Body mass index [BMI] 38.0-38.9, adult; N17.9 Acute kidney failure, unspecified
CPT/HCPCS: 36415; 71020-TC; 74176; 76000-TC; 80048; 80053; 81003; 81015; 85025; 85027; 93005; 93010; 94760; 99284-25; J1644

== ENCOUNTER 2017-06-23 06:07 | Day surgery (SDC) | payer OTHER ==
[2017-06-22 09:21] VITALS: BMI 39.5
--- NOTE | 2017-06-23 08:24 | HP ---
History & Physical Update - History History: No Change - Physical Physical: No Change - Assessment Assessment: No Change - Plan Plan: No Change
[2017-06-23] MEDS ORDERED: ACETAMINOPHEN 1000 MG/100 ML VIAL (NON FORMULARY) IVPB ONE (08:25)
[2017-06-23] MEDS ORDERED: LIDOCAINE HCL/PF 2% SDV 5ML VIAL ONE (08:27)
[2017-06-23] MEDS ORDERED: PROPOFOL 20 ML ONE (08:27)
[2017-06-23] MEDS ORDERED: SUCCINYLCHOLINE CHLORIDE 200 MG/10 ML VIAL ONE (08:28)
[2017-06-23] MEDS ORDERED: DEXTROSE 5%-0.45% SALINE 1,000 ML IV SCH (08:30)
[2017-06-23] MEDS ORDERED: IBUPROFEN 800 MG/8 ML IJ IVPB SCH (08:30)
[2017-06-23] MEDS ORDERED: ceFAZolin SODIUM 1 GM VIAL IVPB ONE (08:33)
[2017-06-23] MEDS ORDERED: oxyCODONE HCL 5 MG TABLET PO PRN (09:28)
[2017-06-23] MEDS ORDERED: ONDANSETRON 4 MG/2 ML VIAL IVPUSH PRN (09:28)
[2017-06-23] MEDS ORDERED: PROMETHAZINE HCL 25 MG/1 ML VIAL IVPB PRN (09:28)
[2017-06-23] MEDS ORDERED: LACTATED RINGERS SOLUTION 1,000 ML IV SCH (09:30)
[2017-06-23] MEDS ORDERED: ACETAMINOPHEN INJECTION 100 ML IVPB ONE (10:00)
[2017-06-23 10:49] VITALS: TEMP 97.8
--- NOTE | 2017-06-23 12:05 | OP ---
DATE OF OPERATION: 06/23/2017 PREOPERATIVE DIAGNOSIS: Left ureteral calculus. POSTOPERATIVE DIAGNOSIS: Left ureteral calculus. PROCEDURE: Cystoscopy, left ureteroscopy, laser lithotripsy, and ureteral stent replacement. ANESTHESIA: General. FINDINGS: Impacted large stone in the proximal left ureter, stented with 6 x 28 double-J ureteral stent. PREOPERATIVE INDICATIONS: The patient is a 67-year-old male who came in approximately a month ago with obstructing stone and pain. At the time, the left ureteral orifice was very tight and unable to be dilated easily; so, a stent was left in place. He comes to the OR today for removal of stent. OPERATION: Patient was brought to the OR, placed on the table in supine position, given general anesthesia and IV antibiotics and placed in the modified lithotomy position. The groin was prepped and draped sterilely. Cystoscopy was performed. A stent was seen emerging from the left UO and was removed. A wire was placed up into the left kidney and over that, a 10-Ukrainian dual-lumen dilating catheter and then a second wire. Over the wire, a flexible ureteroscope was passed to the point of the stone which was just below the UPJ. Using a holmium laser fiber, the stone was broken up into small passable fragments. No other stones were seen. The scope also visualized the kidney. The scope was removed. A 6 x 28 double-J ureteral stent was left in place, as placed under fluoroscopy. Bladder was emptied. The patient was woken up. Edouard [id number]
[2017-06-23 12:37] VITALS: BP 134/77; PULSE 58
--- NOTE | 2017-06-26 10:11 | PATH ---
Surgical Pathology Report Patient Name: ODILON CANNON Med. Rec. #: [id number] /Age/Gender: 1950 (Age: 67) / M Account: [id number] Location: [facility] Taken: 06/23/2017 Received: 06/23/2017 Reported: 06/26/2017 Physicians: Vickey Agrawal M.D. Specimen(s) Received REMOVED LEFT URETERAL STENT Clinical History Kidney stone Final Diagnosis SEVERITY OF ILLNESS COORDINATOR, LEFT URETER, REMOVAL: URETERAL STENT (GROSS ONLY). Electronically Signed Rufino Aquino M.D. Gross Description Received fresh labeled "removed left ureteral stent," is a 37 cm in length blue-green, coiled portion of tubing, consistent with a ureteral stent. No soft tissue is present. No sections are submitted, gross only. 06/23/201706/23/2017
== END 2017-06-23 12:36 | disposition home or self-care (01) ==
LOC: JASU-SURG 06:07
PROVIDERS: ATTEND Urology
PROC: 0TF78ZZ Fragmentation in Left Ureter, Via Natural or Artificial Opening Endoscopic (ICD-10-PCS; principal; 2017-06-23 08:00)
PROC: 0T778DZ Dilation of Left Ureter with Intraluminal Device, Via Natural or Artificial Opening Endoscopic (ICD-10-PCS; 2017-06-23 08:00)
DX: N20.1 Calculus of ureter (principal)
CPT/HCPCS: 76000-TC-FY; 88300-TC; 94760